=== PATIENT | male | born 1975 | race Caucasian/White ===

== ENCOUNTER 2019-02-23 05:00 | Emergency (ER) | payer MEDICAID ==
[~2019-02-23] VITALS: Ht 175.3 cm; Wt 80.7 kg
[2019-02-23 05:00] VITALS: BP 130/88
--- NOTE | 2019-02-23 05:00 | NUR ---
TAKEN TO BED 11 VIA ROSSY. RN X 3, EMT AT BEDSIDE. SEIZURE PRECAUTIONS IMPLEMENTED.
--- NOTE | 2019-02-23 05:15 | NUR ---
PATIENT PRESENTS TO ED WITH POSSIBLE SEIZURE, PT BIB EMS, AWOKE TO PT SHAKING IN BED, UNRESPONSIVE. EPISODE LASTED APPROX 1 MINUTE. DENIES HX OF SEIZURES BUT REPORTS SIMILAR EPISODE X 4 YEARS AGO PT DESCRIBES A "BLACKOUT". PER EMS, GCS 11, A/O X 2 UPON ARRIVAL. PT ARRIVES WITH EYES OPEN, A/O X 4, GCS 15. EMS STARTED 20G LEFT HAND. PT VSS. PMH-- HX OF SZ WHEN LITTLE KID. RX-- DENIES. DENIES N/V/D; SKIN IS PINK/WARM/DRY; AAOX4 WITH EVEN AND STEADY GAIT; LUNGS CLEAR BL; HR EVEN AND REGULAR; PT DENIES ANY FEVER, CP, SOB, OR COUGH AT THIS TIME; PATIENT STATES PAIN OF 0/10 AT THIS TIME; VSS; PATIENT POSITIONED FOR COMFORT; HOB ELEVATED; BEDRAILS UP X2; BED DOWN. ER MD MADE AWARE OF PT STATUS. SZ PADS ON BED.
[2019-02-23 05:29] LABS: BASOPHILS % (AUTO) 0.3 % (0.0-2.0); EOSINOPHILS # (AUTO) 0.1 K/uL (0-0.4); EOSINOPHILS % (AUTO) 2.3 % (0.0-4.0); HEMOGLOBIN 14.7 g/dL (12.0-18.0); LYMPHOCYTES # (AUTO) 2.2 K/uL (2.0-11.5); LYMPHOCYTES % (AUTO) 34.4 % (20.5-51.1); MEAN CORPUSCULAR HEMOGLOBIN 29 pg (27-31); MEAN CORPUSCULAR HGB CONC 34 g/dL (33-37); MEAN CORPUSCULAR VOLUME 86.4 fL (80-94); MONOCYTES # (AUTO) 0.5 K/uL (0.8-1.0); MONOCYTES % (AUTO) 7.2 % (1.7-9.3); NEUTROPHILS # (AUTO) 3.5 K/uL (1.8-7.7); NEUTROPHILS % (AUTO) 55.8 % (42.2-75.2); PLATELET COUNT (AUTO) 185 K/uL (140-450); RED BLOOD CELL COUNT(AUTO) 5.09 MIL/uL (4.20-6.10); RED CELL DISTRIBUTION WIDTH 13.2 % (11.6-13.7); WHITE BLOOD COUNT (AUTO) 6.3 K/uL (4.8-10.8)
--- NOTE | 2019-02-23 05:31 | NUR ---
TAKEN TO CT VIA NENARISAIAH. ACCOMPANIED BY TRUPTI SOW.
[2019-02-23 05:37] LABS: ANION GAP 14.4 (8-16); CARBON DIOXIDE 25.2 mmol/L (21-32); POTASSIUM 3.6 mmol/L (3.5-5.1)
[2019-02-23 05:46] LABS: ALBUMIN 3.8 g/dL (3.4-5.0); TOTAL BILIRUBIN 0.4 mg/dL (0.0-1.0)
--- NOTE | 2019-02-23 05:46 | NUR ---
PT BACK FROM CT VIA GURENY. PLACED IN HOSPTIAL BED WITH OUT INCIDENT. SIDE RAIL PUT UP X 2. BED LOWERED TO GROUND. SZ PADS IN PLACE. FAMILY AT BEDSIDE.
[2019-02-23] MEDS ORDERED: KETOROLAC 30 MG/ML VIAL IVP ONE (06:20)
--- NOTE | 2019-02-23 06:25 | NUR ---
PT APPEARS TO BE IN NO DISTRESS. VSS. PT GIVEN PAIN MEDICATION FOR RASHEED. NO CHANGES FROM PREVIOUS ASSESSMENT. PT GCS 15. AAOX4.
[2019-02-23 06:35] VITALS: BP 121/79
--- NOTE | 2019-02-23 06:35 | NUR ---
Patient discharged with v/s stable. Written and verbal after care instructions given and explained. Patient alert, oriented and verbalized understanding of instructions. Ambulatory with steady gait. All questions addressed prior to discharge. ID band removed. Patient advised to follow up with PMD. Patient educated on indication of medication including possible reaction and side effects. Opportunity to ask questions provided and answered.
== END 2019-02-23 06:35 | disposition home or self-care (01) ==
LOC: MED 05:00
DX: R56.9 Unspecified convulsions (principal)
CPT/HCPCS: 36415; 70450; 80053; 85025; 96374; 99284; J1885

== ENCOUNTER 2019-08-09 02:40 | Emergency (ER) | payer MEDICAID ==
[~2019-08-09] VITALS: Ht 175.3 cm; Wt 72.6 kg
[2019-08-09 02:40] VITALS: BP 122/79
[2019-08-09] MEDS ORDERED: levETIRAcetam 1,000 MG in NACL 0.9% 100 ML IV ONE (03:00)
[2019-08-09] MEDS ORDERED: levETIRAcetam 100 MG/ML VIAL IV ONE (03:03)
[2019-08-09 03:22] LABS: ANION GAP 8.7 (8-16); CARBON DIOXIDE 29.2 mmol/L (21-32); POTASSIUM 3.9 mmol/L (3.5-5.1)
[2019-08-09 03:30] LABS: BASOPHILS % (AUTO) 0.4 % (0.0-2.0); EOSINOPHILS # (AUTO) 0.1 K/uL (0-0.4); EOSINOPHILS % (AUTO) 1.8 % (0.0-4.0); HEMATOCRIT 42.4 % (36-52); HEMOGLOBIN 14.2 g/dL (12.0-18.0); LYMPHOCYTES # (AUTO) 1.7 K/uL (2.0-11.5); LYMPHOCYTES % (AUTO) 25.5 % (20.5-51.1); MEAN CORPUSCULAR HEMOGLOBIN 29 pg (27-31); MEAN CORPUSCULAR HGB CONC 34 g/dL (33-37); MEAN CORPUSCULAR VOLUME 85.1 fL (80-94); MONOCYTES # (AUTO) 0.4 K/uL (0.8-1.0); MONOCYTES % (AUTO) 5.9 % (1.7-9.3); NEUTROPHILS # (AUTO) 4.5 K/uL (1.8-7.7); NEUTROPHILS % (AUTO) 66.4 % (42.2-75.2); PLATELET COUNT (AUTO) 165 K/uL (140-450); RED BLOOD CELL COUNT(AUTO) 4.98 MIL/uL (4.20-6.10); RED CELL DISTRIBUTION WIDTH 13.3 % (11.6-13.7); WHITE BLOOD COUNT (AUTO) 6.8 K/uL (4.8-10.8)
[2019-08-09 04:20] VITALS: BP 123/85
== END 2019-08-09 04:22 | disposition home or self-care (01) ==
LOC: MED 02:40
DX: R56.9 Unspecified convulsions (principal)
CPT/HCPCS: 36415; 70450; 71045; 80048; 85025; 93005; 99285; J1953; Q0092

== ENCOUNTER 2019-11-03 03:32 | Emergency (ER) | payer MEDICAID ==
[~2019-11-03] VITALS: Ht 175.3 cm; Wt 74.8 kg
--- NOTE | 2019-11-03 03:33 | NUR ---
SARAHD ASSESSING PT IN [facility]. PT TAKEN TO BED 9 BY EMS. PT ABLE TO AMBULATE TO BED 9 WITH STEADY GAIT.
[2019-11-03 03:35] VITALS: BP 108/78
--- NOTE | 2019-11-03 03:35 | NUR ---
44 Y/O MALE BIBA ALS C/O SEIZURE . PER EMS WITNESSED SEIZURE BY , PT WAS SEIZING FOR 20 - 30 SECONDS. - INCONTINENCE , + POSTICTAL WHEN EMS ARRIVED. PT CURRENTLY ALERT, AWAKE AND ABLEL TO FOLLOW ALL COMMANDS. PERRLA 4MM. A/O X 4. PT STATES HE HAD A PREVIOUS SEIZURE LAST MONTH. PT WAS RX KEPPRA BUT STOPPED TAKING IT AFTER 2 WEEKS D/T NOT BEING ABLE TO SLEEP WHILE TAKING THE MEDICATION. PT STATES HE RECEIVED MEDICINE FROM A FAMILY MEMBER , CLONAZEPAM AND THAT HELPS RELAX HIM. 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 PT RESTING IN BED, LOCKED AND IN LOWEST POSITION ,HOB ELEVATED, SIDE RAIL X2 AND SEIZURE PRECAUTIONS IN PLACE FOR PT SAFETY. PMH: SEIZURES - PER PT 6 SEIZURES IN LAST 6 YEARS SO
[2019-11-03] MEDS ORDERED: levETIRAcetam 500 MG in NACL 0.9% 100 ML IV ONE (03:40)
--- NOTE | 2019-11-03 03:40 | NUR ---
IV LACED IN L AC 18G PRIOR TO ARRIVAL BY EMS. IV SITE IS PATENT.
--- NOTE | 2019-11-03 03:50 | NUR ---
BLOOD LABS COLLECTED AND URINE SAMPLE COLLECTED AND SENT TO LAB.
[2019-11-03] MEDS ORDERED: levETIRAcetam 100 MG/ML VIAL IV ONE (03:52)
[2019-11-03 04:49] LABS: ALBUMIN 3.9 g/dL (3.4-5.0); CARBON DIOXIDE 28.9 mmol/L (21-32); CREATININE 1.1 mg/dL (0.6-1.3); POTASSIUM 3.9 mmol/L (3.5-5.1); TOTAL BILIRUBIN 0.3 mg/dL (0.0-1.0)
[2019-11-03 04:55] LABS: BASOPHILS % (AUTO) 0.7 % (0.0-2.0); EOSINOPHILS # (AUTO) 0.1 K/uL (0-0.4); EOSINOPHILS % (AUTO) 1.9 % (0.0-4.0); HEMATOCRIT 41.9 % (36-52); LYMPHOCYTES # (AUTO) 1.7 K/uL (2.0-11.5); LYMPHOCYTES % (AUTO) 31.8 % (20.5-51.1); MEAN CORPUSCULAR HEMOGLOBIN 29 pg (27-31); MEAN CORPUSCULAR HGB CONC 34 g/dL (33-37); MEAN CORPUSCULAR VOLUME 85.9 fL (80-94); MONOCYTES # (AUTO) 0.4 K/uL (0.8-1.0); MONOCYTES % (AUTO) 7.9 % (1.7-9.3); NEUTROPHILS # (AUTO) 3.2 K/uL (1.8-7.7); NEUTROPHILS % (AUTO) 57.7 % (42.2-75.2); PLATELET COUNT (AUTO) 160 K/uL (140-450); RED BLOOD CELL COUNT(AUTO) 4.88 MIL/uL (4.20-6.10); RED CELL DISTRIBUTION WIDTH 13.1 % (11.6-13.7); WHITE BLOOD COUNT (AUTO) 5.5 K/uL (4.8-10.8)
[2019-11-03 06:00] VITALS: BP 104/74
--- NOTE | 2019-11-03 06:02 | NUR ---
IV removed, catheter intact and site benign. Applied folded 4x4 gauze and tape to stop bleeding.
--- NOTE | 2019-11-03 06:08 | NUR ---
Patient discharged with v/s stable. Written and verbal after care instructions given and explained. Patient alert, oriented and verbalized understanding of instructions. Ambulatory with steady gait. All questions addressed prior to discharge. ID band removed. Patient advised to follow up with PMD. Rx of DILANTIN given. Patient educated on indication of medication including possible reaction and side effects. Opportunity to ask questions provided and answered. Per pt his will be picking him up.
== END 2019-11-03 06:08 | disposition home or self-care (01) ==
LOC: MED 03:32
DX: R56.9 Unspecified convulsions (principal)
CPT/HCPCS: 36415; 80053; 85025; 96365; 99284; J1953

== ENCOUNTER 2019-11-30 04:05 | Emergency (ER) | payer MEDICAID ==
[~2019-11-30] VITALS: Ht 165.1 cm; Wt 81.2 kg
[2019-11-30 04:13] VITALS: BP 131/87
[2019-11-30] MEDS ORDERED: ACETAMINOPHEN 325 MG TAB PO ONE (04:15)
--- NOTE | 2019-11-30 04:15 | NUR ---
44 YO M BIBA FOR C/C OF POSTICTAL STATE POST PARTIAL SEIZURE 15 MIN PRIOR TO ARRIVAL. PER [facility] WAS A WITNESSED SEIZURE AND PT WAS SEIZING FOR 2 MIN. PERRLA 3MM BRISK REACTION. PER PT STATES HIS PRESCRIPTION WAS RECENTLY CHANGED TO PHENYTOIN AND HE MISSED HIS EVENING DOSE LAST NIGHT. PT STATES HE HAS 6/10 RASHEED. DENIES FEVER, COUGH, SOB, AND TRAVEL. 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 SIDE RAILS PADDED X2. BED LOCKED AND IN LOWEST POSITION. NKA MED HX: EPILEPSY RX: PHENYTOIN
--- NOTE | 2019-11-30 04:33 | NUR ---
labs collected and sent to lab
[2019-11-30 05:01] LABS: BASOPHILS # (AUTO) 0.1 K/uL (0.00-0.22); BASOPHILS % (AUTO) 1.2 % (0.0-2.0); EOSINOPHILS # (AUTO) 0.1 K/uL (0-0.4); EOSINOPHILS % (AUTO) 2.4 % (0.0-4.0); HEMATOCRIT 43.9 % (36-52); HEMOGLOBIN 14.7 g/dL (12.0-18.0); LYMPHOCYTES # (AUTO) 1.4 K/uL (2.0-11.5); LYMPHOCYTES % (AUTO) 32.3 % (20.5-51.1); MEAN CORPUSCULAR HEMOGLOBIN 29 pg (27-31); MEAN CORPUSCULAR HGB CONC 34 g/dL (33-37); MEAN CORPUSCULAR VOLUME 86.3 fL (80-94); MONOCYTES # (AUTO) 0.3 K/uL (0.8-1.0); MONOCYTES % (AUTO) 7.4 % (1.7-9.3); NEUTROPHILS # (AUTO) 2.5 K/uL (1.8-7.7); NEUTROPHILS % (AUTO) 56.7 % (42.2-75.2); PLATELET COUNT (AUTO) 170 K/uL (140-450); RED BLOOD CELL COUNT(AUTO) 5.09 MIL/uL (4.20-6.10); WHITE BLOOD COUNT (AUTO) 4.3 K/uL (4.8-10.8)
[2019-11-30 05:13] LABS: ANION GAP 10.3 (8-16); CARBON DIOXIDE 28.7 mmol/L (21-32); CREATININE 0.8 mg/dL (0.6-1.3)
[2019-11-30] MEDS ORDERED: PHENYTOIN 1,000 MG in NACL 0.9% 100 ML IV ONE (05:30)
[2019-11-30] MEDS ORDERED: PHENYTOIN 100 MG CAPER PO ONE (05:35)
[2019-11-30] MEDS ORDERED: PHENYTOIN 250 MG/5 ML VIAL IV ONE (05:56)
--- NOTE | 2019-11-30 06:16 | NUR ---
PT STATES HIS RASHEED HAS REDUCED TO 2/10 POST PO TYLENOL. PT EDUCATED ON NOT MISSING DOSE OF SEIZURE MEDICATION. ALL PT NEEDS MET AT THIS TIME. HOUSEKEEPER CHILD CARE/PULSE OX IN PLACE. BED LOCKED AND IN LOWEST POSITION, SEIZURE PADS IN PLACE. SIDE RAILS X2.
--- NOTE | 2019-11-30 06:50 | NUR ---
pt called family to get a ride home. will DC when ride arrives.
[2019-11-30 07:10] VITALS: BP 112/73
--- NOTE | 2019-11-30 07:10 | NUR ---
Patient discharged with v/s stable. Written and verbal after care instructions given and explained. Patient verbalized understanding. Ambulatory with steady gait. All questions addressed prior to discharge. Advised to follow up with PMD.
== END 2019-11-30 07:10 | disposition home or self-care (01) ==
LOC: MED 04:05
DX: G40.909 Epilepsy, unspecified, not intractable, without status epilepticus (principal); R51 Headache
CPT/HCPCS: 36415; 80048; 80185; 85025; 96365; 99284; J1165

== ENCOUNTER 2021-09-01 03:33 | Emergency (ER) | payer MEDICAID ==
[~2021-09-01] VITALS: Ht 172.7 cm; Wt 81.6 kg
[2021-09-01 03:36] VITALS: BP 129/89
--- NOTE | 2021-09-01 04:00 | NUR ---
45Y.O. M BIBA FROM HOME WITH C/C OF WITNESSED TONIC CLONIC SEIZURE IN BED THAT LASTED ABOUT 2MINS. PER EMS WHEN THEY ARRIVED PT WAS ALOC, BECAME A&OX3 ON ROUTE. PT IS AWAKE AND ALERT AT THIS TIME, STATES HE FEELS FINE NOW. VITALS WNL, SKIN INTACT AND A&OX4 HX:EPILEPSY RX:DILANTIN NKA
[2021-09-01 04:04] LABS: HEMATOCRIT 45.1 % (36-52); MEAN CORPUSCULAR HEMOGLOBIN 29 pg (27-31); RED CELL DISTRIBUTION WIDTH 13.2 % (11.6-13.7); WHITE BLOOD COUNT (AUTO) 7.5 K/uL (4.8-10.8)
[2021-09-01 04:07] LABS: BASOPHILS % (AUTO) 0.3 % (0.0-2.0); EOSINOPHILS # (AUTO) 0.2 K/uL (0-0.4); EOSINOPHILS % (AUTO) 2.4 % (0.0-4.0); HEMOGLOBIN 15.4 g/dL (12.0-18.0); LYMPHOCYTES # (AUTO) 2.5 K/uL (2.0-11.5); LYMPHOCYTES % (AUTO) 33.8 % (20.5-51.1); MEAN CORPUSCULAR HGB CONC 34 g/dL (33-37); MEAN CORPUSCULAR VOLUME 85.8 fL (80-94); MONOCYTES # (AUTO) 0.7 K/uL (0.8-1.0); NEUTROPHILS % (AUTO) 53.5 % (42.2-75.2); PLATELET COUNT (AUTO) 170 K/uL (140-450); RED BLOOD CELL COUNT(AUTO) 5.26 MIL/uL (4.20-6.10)
[2021-09-01] MEDS ORDERED: LORazepam 1 MG TAB PO ONE (04:10)
[2021-09-01 04:18] LABS: ALBUMIN 3.8 g/dL (3.4-5.0); ANION GAP 11.6 (8-16); ASPARTATE AMINOTRANSFERASE 25 U/L (15-37); CARBON DIOXIDE 25.3 mmol/L (21-32); CHLORIDE 105 mmol/L (98-107); CREATININE 0.9 mg/dL (0.6-1.3); GFR ARICAN-AMERICAN 118 mL/min (>90); GLUCOSE 103 mg/dL (74-106); PHENYTOIN (DILANTIN) 2.3 ug/ml (10.0-20.0); POTASSIUM 3.9 mmol/L (3.5-5.1); SODIUM SERUM 138 mmol/L (136-145); TOTAL BILIRUBIN 0.2 mg/dL (0.0-1.0); UREA NITROGEN, BLOOD 11 mg/dL (7-18)
[2021-09-01 04:40] LABS: BARBITURATE, URINE POSITIVE ng/ml (NEG <=200); BENZODIAZEPINE, URINE NEGATIVE ng/mL (NEG <=200); CANNABINOID, URINE NEGATIVE ng/mL (NEG <=50); COCAINE, URINE NEGATIVE ng/mL (NEG <=300); OPIATE, URINE NEGATIVE ng/mL (NEG <=2000); PHENCYCLIDINE SCREEN,URINE NEGATIVE ng/mL (NEG <=25)
[2021-09-01] MEDS ORDERED: PHENYTOIN 1,000 MG in NACL 0.9% 100 ML IV ONE (04:40)
[2021-09-01] MEDS ORDERED: PHEN100C3 PO (04:41)
[2021-09-01] MEDS ORDERED: PHENYTOIN 250 MG/5 ML VIAL IV ONE (05:22)
--- NOTE | 2021-09-01 06:55 | NUR ---
Patient discharged with v/s stable. Written and verbal after care instructions given and explained. Patient alert, oriented and verbalized understanding of instructions. Ambulatory with steady gait. All questions addressed prior to discharge. ID band removed. Patient advised to follow up with PMD. Rx of DILANTIN given. Patient educated on indication of medication including possible reaction and side effects. Opportunity to ask questions provided and answered.
[2021-09-01 08:06] VITALS: BP 118/66
== END 2021-09-01 06:55 | disposition home or self-care (01) ==
LOC: MED 03:33
DX: G40.909 Epilepsy, unspecified, not intractable, without status epilepticus (principal); Z79.899 Other long term (current) drug therapy
CPT/HCPCS: 36415; 80053; 80185; 80305; 85025; 96365; 99284; G0482; J1165